=== PATIENT | female | born 1955 | race Caucasian/White ===

== ENCOUNTER 2016-05-13 15:39 | Outpatient (CLI) | payer MEDICARE ==
--- NOTE | 2016-05-13 20:21 | RAD ---
SKULL FOUR VIEWS: Date: 05-13-16 FINDINGS: The calvarium appears intact. No bony masses were apparent. The sella is normal in size. The sphe noid sinus contains no air fluid levels. IMPRESSION: No significant bony abnormality. If concern still exists, then CT or MRI would be advantageous in l ooking for a mass. POS: HOME
== END 2016-05-13 15:40 | disposition home or self-care (01) ==
LOC: BURRAD 15:39
PROVIDERS: ATTEND Physician Assistant
DX: M89.9 Disorder of bone, unspecified (principal)
CPT/HCPCS: 70260

== ENCOUNTER 2016-07-12 13:47 | Outpatient (CLI) | payer MEDICARE ==
[2016-07-12 14:06] LABS: #Basophils 0.1 thou/uL (0.0-0.2); #Eosinphils 0.2 thou/uL (0.0-0.7); #Lymphocytes 2.8 thou/uL (1.20-3.40); #Monocytes 0.5 thou/uL (0.11-0.59); %Basophils 1.1 % (0.0-1.0); %Eosinophils 1.8 % (0.0-10.0); %Monocytes 6.1 % (0.0-10.0); Hematocrit 42.2 % (36.0-47.0); Mean Platelet Volume 5.6 fL (7.4-10.4); Red Blood Cell (RBC) Count 4.97 mill/uL (4.20-5.40); White Blood Cell (WBC) Count 8.6 thou/uL (4.8-10.8)
[2016-07-12 14:28] LABS: Methadone Not Detected (NotDetected); Methamphetamine Not Detected (NotDetected)
[2016-07-12 14:50] LABS: Anion Gap 13 mmol/L (10-20); BUN (Urea Nitrogen) 14 mg/dL (9.8-20.1); Calc. Creatinine Clearance 0 mL/min (70-130); Calcium 7.2 mg/dL (7.8-10.44); Carbon Dioxide 21 mmol/L (22-29); Chloride 109 mmol/L (98-107); Estimated GFR-MDRD 88
== END 2016-07-12 13:48 | disposition home or self-care (01) ==
LOC: HPCALD 13:47
PROVIDERS: ATTEND Physician Assistant
DX: F41.9 Anxiety disorder, unspecified (principal); R41.82 Altered mental status, unspecified
CPT/HCPCS: 36415; 80048; 80306; 84443; 85025

== ENCOUNTER 2016-10-03 18:37 | Emergency (ER) | payer MEDICARE ==
[2016-10-03] MEDS ORDERED: ALPRAZolam 0.5 MG TAB ONE (19:08)
== END 2016-10-03 19:12 | disposition home or self-care (01) ==
LOC: BURERS 18:37
DX: F41.9 Anxiety disorder, unspecified (principal); R10.13 Epigastric pain; M54.9 Dorsalgia, unspecified; G89.29 Other chronic pain; I10 Essential (primary) hypertension; K50.90 Crohn's disease, unspecified, without complications; J45.909 Unspecified asthma, uncomplicated; F32.9 Major depressive disorder, single episode, unspecified; F17.210 Nicotine dependence, cigarettes, uncomplicated; Z79.899 Other long term (current) drug therapy
CPT/HCPCS: 99283